=== PATIENT | female | born 1960 | race Caucasian/White ===

== ENCOUNTER 2025-06-12 15:11 | Emergency (ER) | payer MEDICARE, SELFPAY ==
[2025-06-12 15:48] VITALS: BP 140/80; PULSE 97; RESP 20; TEMP 36.7; O2SAT 98; BMI 23.0
--- OUTSIDE RECORDS SUMMARY | 2025-06-12 16:33 | XMS_ITS | Clinical Summary ---
Author Organization [facility] Address [address] [place], [place] [address] Phone Care Team Providers Care Customer Sales Consultant Name Role Phone Shreya Alas MD Primary Care Provider [phone] Allergies Active Allergy Reactions Criticality Noted Date Comments Penicillins Other (See Comments) High 04/17/2019 Passed out after getting shots as child Medications alendronate (FOSAMAX) 70 mg Oral Tablet Take 70 mg by mouth once a week. 9 Active ergocalciferol (DRISDOL) 50,000 unit Oral Capsule Take 50,000 Units by mouth once a week. 9 Active pantoprazole (PROTONIX) 40 mg Oral Tablet, Delayed Release (E.C.) Take 40 mg by mouth every morning. 9 Active umeclidinium-vi lanteroL (ANORO ELLIPTA) 62.5-25 mcg/actuation Inhl Disk with Device Inhale 1 Puff into the lungs daily. Active amLODIPine (NORVASC) 5 mg Oral Tablet TAKE ONE (1) TABLET EVERY DAY BY ORAL ROUTE. 2 Active atorvastatin (LIPITOR) 80 mg Oral Tablet Take 80 mg by mouth daily. 2 Active fenofibrate (TRICOR) 145 mg Oral Tablet TAKE ONE (1) TABLET EVERY DAY BY ORAL ROUTE. 2 Active metoprolol succinate (TOPROL-XL) 50 mg Oral Tablet Sustained Release 24 hr Take 50 mg by mouth daily. 2 Active venlafaxine (EFFEXOR-XR) 75 mg Oral Capsule, Sust. Release 24 hr TAKE ONE CAPSULE EVERY DAY BY ORAL ROUTE 2 Active amitriptyline (ELAVIL) 50 mg Oral Tablet TAKE ONE (1) TAB IN IN THE MORNING AND ONE (1) TAB IN AFTERNOON FOR HEADACHES 180 Tablet 3 2 Active rimegepant (NURTEC ODT) 75 mg Oral Tablet, Rapid Dissolve Take 1 tab (melt) once at onset of migraine as needed. Max dose is 75mg /24 hours. 8 Tablet 11 09/22/2022 2:41 PM EST 3 Active fremanezumab-vf rm (AJOVY AUTOINJECTOR) 225 mg/1.5 mL SubQ Auto-Injector Subcutaneous (Inject under the skin) 1.5 mL every 30 days. 1.5 mL 8 11/02/2022 1:53 PM EDT 3 Active Active Problems Problem Noted Date Diagnosed Date Pes cavus 09/17/2021 Acute right ankle pain 09/17/2021 Retained orthopedic hardware left hand and forea rm 06/18/2019 Carpal tunnel syndrome of left wrist 04/16/2019 Closed extra-articular fract ure of distal end of left radius with malunion 04/16/2019 Surgical History Surgery Date Site/Laterality Comments DENTAL SURGERY full upper denture, partial lower denture ENDOMETRIAL ABLATION 07/25/2000 - 07/24/2001 HERNIA REPAIR 07/25/2011 - 07/24/2012 umbilical hernia repair ( double ) TONSILLECTOMY EAR SURGERY Bilateral PE tubes COLONOSCOPY 07/25/2018 - 08/24/2018 UPPER GASTROINTESTINAL ENDOSCOPY 05/10/2018 WRIST SURGERY 04/18/2019 Left LEFT CORRECTION OSTEOTOMY OF DISTAL RADIUS AND CARPAL TUNNEL DECOMPRESSION; Surgeon: Yvan Katz MD; Location: [facility]; Service: Hand Medical devices from this surgery are in the Medical Devices section. CARPAL TUNNEL RELEASE 04/18/2019 Left Surgeon: Yvan Katz MD; Location: [facility]; Service: Hand Medical devices from this surgery are in the Medical Devices section. WRIST ARTHROTOMY 06/19/2019 Left LEFT WRIST REMOVAL OF HARDWARE, SPANNING PLATE, SCREWS; Surgeon: Yvan Katz MD; Location: [facility]; Service: Hand Medical History Medical History Date Comments COPD (chronic obstructive pu lmonary disease) ([facility]) Smoker 1 PPD, since age 23 History of snoring tested for sl eep apnea- no sleep apnea Orthopnea SOB laying flat LUCERO (dyspnea on exertion) SOB on exertion Heartburn Osteoporosis Depression Wears contact lenses Full dentures full upper dentu re, partial lower denture Wears partial dentures full uppe r denture, partial lower denture Wears glasses Arthritis lumbar arthitis- uses lidoderm patch for pain Seasonal allergies Anxiety Bipolar disorder (HCC) Chronic back pain Family History Medical History Relation Name Comments Migraines Brother Arthritis Mother COPD Mother Osteoporosis Mother Anesth Problems Neg Hx Relation Name Status Comments Brother Father unknown Other Mother Social History Tobacco Use Types Packs/Day Years Used Date Smoking Tobacco: Every Day Cigarettes 1 42.9 Started: 07/25/1982 Smokeless Tobacco: Never Tobacco Cessation:Ready to Q uit: Not Asked; Counseling Given: Not Answered Alcohol Use Standard Drinks/Week Comments Yes 14 (1 standard drink = 0.6 oz pu re alcohol) sparingly Education Answer Date Recorded What is the highest level of school you have completed or the highest degree you have received? 9th grade 11/18/2020 Comments No Sex and Gender Information Value Date Recorded Sex Assigned at Not on file Legal Sex Female 2:06 AM EDT Gender Identity Not on file Sexual Orientation Not on file Obstetrics History Para Term AB IAB SAB Ectopic Multiple Livin g Live Births 3 3 3 Date Outcome GA Total Labor Labor/2nd/3rd Weight Sex Type Anes PTL Jennifer A1 A5 Name Clin Term Term Term Last Filed Vital Signs Vital Sign Reading Time Taken Comments Blood Pressure 118/88 09/16/2022 10:09 AM EST Pulse 95 09/16/2022 10:09 AM EST Temperature 36.5 C (97.7 F) 09/16/2022 10:09 AM EST Respiratory Rate 16 11/18/2020 10:48 AM EDT Oxygen Saturation 98% 09/16/2022 10:09 AM EST Inhaled Oxygen Concentration - - Weight 70.3 kg (155 lb) 09/16/2022 10:09 AM EST Height 160 cm (5' 3 ) 09/16/2022 10:09 AM EST Body Mass Index 27.46 09/16/2022 10:09 AM EST Plan of Treatment Health Maintenance Due Date Last Done Comments Annual Wellness Exam 1963 Hepatitis C Screening 1978 DTaP/TDaP/Td (1 - Tdap) 1979 Pneumococcal Vaccine 50+ (1 of 2 - PCV) 1979 Cervical Cancer Screening 1981 Pap Smear 1981 HPV/Pap Cotest 1990 Breast Cancer Screening 2000 Cologuard 2005 FIT 2005 Sigmoidoscopy 2005 Virtual Colonography 2005 Zoster (1 of 2) 2010 Low Dose Lung Cancer Screening 06/24/2022 06/24/2021 Colon Cancer Screening 08/02/2023 Colonoscopy 08/02/2023 08/02/2018 COVID-19 Vaccine ( - 2024-2 6 season) 2025 Influenza Vaccine (#1) 2025 Hepatitis B Vaccine Aged Out No longe r eligible based on patient's age to complete this topic Meningococcal B Vaccine Aged Out No l onger eligible based on patient's age to complete this topic Medical Devices Implanted Type Area Service Mechanic Device Identifier Shelf Expiration Date Model / Serial / Lot Graft Bone Conform Flex 16mm X 16mm X 16mm - [id number] Implanted:Qty: 1 on 04/18/2019 by Yvan Katz MD at [facility] Left: Wrist SYN[employer]ES[employer]ATEC:S [employer]NTHES [facility] 03/01/2021 [id number] / [id number] / Graft Bone Conform Flex 16mm X 16mm X 16mm - [id number] Implanted:Qty: 1 on 04/18/2019 by Yvan Katz MD at [facility] Left: Wrist [employer] [place] 05/01/2021 [id number] / [id number] / Plate Bone Lcp St Steel Straight L170mm Wrist Nonste 2.4mm - [id number] Implanted:Qty: 1 on 04/18/2019 by Yvan Katz MD at [facility] Left: Wrist SYNTHES[employer]STRATEC:S [employer] [facility] [id number] / / Screw Cortex 2.4mm X 10mm Self Tapping With T8 Stardrive Recess Stainless Steel - [id number] Implanted:Qty: 1 on 04/18/2019 by Yvan Katz MD at [facility] Left: Wrist [employer] [place] [id number] / / Screw Cortex 2.4mm X 12mm Self Tapping With T8 Stardrive Recess Stainless Steel - [id number] Implanted:Qty: 3 on 04/18/2019 by Yvan Katz MD at [facility] Left: Wrist [employer] [place] 201.762 / / Screw Cortex 2.4mm X 24mm Self Tapping With T8 Stardrive Recess Stainless Steel - [id number] Implanted:Qty: 1 on 04/18/2019 by Yvan Katz MD at [facility] Left: Wrist [employer] [place] 201.774 / / Screw Cortex 2.4mm X 14mm Self Tapping With T8 Stardrive Recess Stainless Steel - [id number] Implanted:Qty: 3 on 04/18/2019 by Yvan Katz MD at [facility] Left: Wrist [employer] [place] [id number] / / Procedures Procedure Name Priority Date/Time Associated Diagnosis Comments CT LUNG CANCER SCREENING LOW DOSE Routine 06/24/2021 3:00 PM EST History of tobacco abuse from Last 3 Months or Most Recently Relevant to Health Maintenance Results * CT LUNG CANCER SCREENING LOW DOSE (06/24/2021 3:00 PM EST) Anatomical Region Laterality Modality Lung Computed Tomogra phy 06/24/2021 3:00 PM EST Impressions 06/24/2021 3:49 PM EST Unremarkable low-dose screening chest CT. Continued annual screening recommended. Narrative 06/24/2021 3:[address] LUNG CANCER SCREENING LOW DOSE 06/24/2021 3:00 PM CLINICAL HISTORY: Asymptomatic patient meeting NCCN high risk criteria for lung screening. Z87.891-Personal history of nicotine [id number] COMPARISON: None. PROCEDURE COMMENTS: Noncontrast, low-dose, multidetector CT chest per standard department protocol. Interactive 3-D postprocessing done by the reviewing physician on a SYNGO workstation, using Maximum intensity projections (MIPS) and SYNGO LUNG CAD for improved lesion detection. Dempsey images archived to PACS.CT dose reduction was achieved using one or more of the following: Automated exposure control; Iterative reconstruction technique; Technologist adjustment of the mA and/or kV according to the patient's size. FINDINGS: No suspicious pulmonary nodule. No acute inflammatory process. Heart and mediastinum unremarkable. Sub-5 mm nodule potentially partially calcified within the apical posterior segment of the left upper lobe. Evidence of old granulomatous disease. Mucous seen in the origins of the mainstem bronchi bilaterally particularly the right. Coronary artery calcification: Mild. FOLLOW-UP CODE: Lung-RADS Category 2: Benign appearance or behavior: Includes findings such as: new nodule less than 4mm, nodules less than 6mm, GGN less than 20mm, or cat 3 or 4 nodule that is stable for 3 or more months. Continued ANNUAL LOW-DOSE SCREENING CT SCAN ([facility] [address]) suggested if age <78. No significant incidental finding requiring active management. 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 MDR Care Teams Customer Sales Consultant Relationship Specialty Start Date End Date Shreya Alas MD [address] [place], [place] [id number] PCP - General Family Medicine 03/08/22
== END 2025-06-12 17:47 | disposition left against medical advice (07) ==
PROVIDERS: Emergency Provider Student in an Organized Health Care Education/Training Program; PCP Student in an Organized Health Care Education/Training Program
DX: Z53.21 Procedure and treatment not carried out due to patient leaving prior to being seen by health care provider (principal)
CPT/HCPCS: 99211; 99283